=== PATIENT | female | born 1960 | race Two or more races ===

== ENCOUNTER 2023-08-24 13:43 | Emergency (ER) | payer OTHER ==
[2023-08-24 14:18] LABS: BASOPHILS % (AUTO) 0.8 %; EOSINOPHILS # (AUTO) 0.1 10^3/uL (0.0-0.7); EOSINOPHILS % (AUTO) 1.8 %; HCT - HEMATOCRIT 31.1 % (37.0-47.0); HGB - HEMOGLOBIN 8.8 g/dL (12.0-16.0); LYMPHOCYTES # (AUTO) 1.6 10^3/uL (1.5-3.5); LYMPHOCYTES % (AUTO) 30.7 %; MEAN CORPUSCULAR HEMOGLOBIN 23.3 pg (27.0-31.0); MEAN CORPUSCULAR HGB CONC 28.3 g/dL (32.0-36.0); MEAN CORPUSCULAR VOLUME 82.3 fL (81.0-99.0); MEAN PLATELET VOLUME 8.7 fL (7.9-10.8); MONOCYTES # (AUTO) 0.3 10^3/uL (0.0-1.0); MONOCYTES % (AUTO) 6.7 %; NEUTROPHILS % (AUTO) 59.6 %; PLT - PLATELET COUNT 327 10^3/uL (130-450); RED BLOOD COUNT 3.78 10^6/uL (4.20-5.40); RED CELL DISTRIBUTION WIDTH 18.1 % (12.0-15.0); WHITE BLOOD COUNT 5.1 x10^3/uL (4.8-10.8)
[2023-08-24 14:22] LABS: SLIDE REVIEW? Indicated
[2023-08-24 14:26] LABS: MAGNESIUM 1.8 mg/dL (1.7-2.3)
[2023-08-24 14:32] LABS: ALBUMIN 4.2 g/dL (3.2-5.5); ALBUMIN/GLOBULIN RATIO 1.9 (1.0-2.2); BILIRUBIN,TOTAL 0.2 mg/dL (0.2-1.0); CALCIUM 9.8 mg/dL (8.5-10.3); CREATININE 0.6 mg/dL (0.6-1.3); POTASSIUM 3.7 mmol/L (3.5-4.5); TOTAL PROTEIN 6.4 g/dL (6.4-8.9)
[2023-08-24 14:35] LABS: PLATELET ESTIMATE, MANUAL NORMAL (130-450,000) (NORMAL); PLATELET MORPHOLOGY NORMAL APPEARANCE (NORMAL); RBC MORPHOLOGY (MULTIPLE) 1+ HYPOCHROMASIA (NORMAL)
--- NOTE | 2023-08-24 14:58 | ED Physician Documentation ---
History of Present Illness - Stated complaint Stated Complaint: SOA,LOW BLOOD COUNT - Chief complaint Chief Complaint: General - Additonal information Additional information: 63-year-old female presents emergency department sent over from clinic for ongoing anemia. Patient's primary care provider Alicia Odonnell manage practitioner called and reports to the emergency department that hemoglobin for the patient was originally 7.9 has actually improved to 8.7 and is worried about a possible GI bleed. Patient is Orthodoxy and she tells me that she does not want a blood transfusion. Patient is here with her daughter she says that she has been feeling more fatigued and lethargic lately as well as experiencing urinary urgency. No fevers or chills no nausea vomiting. PD PAST MEDICAL HISTORY - Past Medical History Psych: Depression - Past Surgical History Past Surgical History: No - Present Medications Home Medications: Ambulatory Orders Medication Instructions Recorded Confirmed DULoxetine [Cymbalta] 20 mg PO DAILY 08/24/23 08/24/23 Sertraline [Zoloft] 50 mg PO DAILY 08/24/23 08/24/23 - Allergies Allergies/Adverse Reactions: Allergies Allergy/AdvReac Type Severity Reaction Status Date / Time Penicillins AdvReac Rash Verified 08/24/23 13:53 - Social History Does the pt smoke?: No Smoking Status: Never smoker Does the pt drink ETOH?: No Does the pt have substance abuse?: No - Immunizations Immunizations are current?: Yes PD ED PE NORMAL - Vitals Vital signs reviewed: Yes - General General: Alert and oriented X 3, No acute distress, Well developed/nourished - HEENT HEENT: Atraumatic, PERRL, EOMI, Moist mucous membranes - Cardiac Cardiac: RRR - Respiratory Respiratory: No respiratory distress, Clear bilaterally - Abdomen Abdomen: Normal bowel sounds, Soft, No organomegaly, Other (mild RLQ tenderness) - Derm Derm: Normal color, Warm and dry, No rash - Neuro Neuro: Alert and oriented X 3, 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, No motor deficit, No sensory deficit, Normal speech - Psych Psych: Normal mood Results - Vitals Vitals: Vital Signs - 24 hr 08/24/23 08/24/23 08/24/23 13:54 16:34 18:15 Temperature 36.9 C 36.9 C Heart Rate 82 69 72 Respiratory 17 16 16 Rate Blood Pressure 130/66 115/73 118/80 O2 Saturation 100 99 99 Oxygen O2 Source Room air - Labs Labs: Microbiology 08/24/23 15:57 Occult Blood - Final Stool Laboratory Tests 08/24/23 08/24/23 08/24/23 14:14 14:14 14:50 WBC 5.1 RBC 3.78 L Hgb 8.8 L Hct 31.1 L MCV 82.3 MCH 23.3 L MCHC 28.3 L RDW 18.1 H Plt Count 327 MPV 8.7 Neut # (Auto) 3.0 Lymph # (Auto) 1.6 Wetzel # (Auto) 0.3 Eos # (Auto) 0.1 Baso # (Auto) 0.0 Absolute Nucleated RBC 0.00 Nucleated RBC % 0.0 Manual Slide Review Indicated Platelet Estimate NORMAL (130-450,000) Platelet Morphology NORMAL APPEARANCE RBC Morph Micro Appear 1+ HYPOCHROMASIA Sodium 137 Potassium 3.7 Chloride 106 Carbon Dioxide 26 Anion Gap 5.0 L BUN 13 Creatinine 0.6 Estimated GFR (MDRD) 101 Glucose 97 Calcium 9.8 Magnesium 1.8 Iron 13 L TIBC 546 H % Saturation 2 L Transferrin 390 H Total Bilirubin 0.2 AST 20 ALT 25 Alkaline Phosphatase 81 Total Protein 6.4 Albumin 4.2 Globulin 2.2 Albumin/Globulin Ratio 1.9 Lipase 30 Urine Color YELLOW Urine Clarity CLEAR Urine pH 6.0 Ur Specific Dumas 1.020 Urine Protein NEGATIVE Urine Glucose (UA) NEGATIVE Urine Ketones NEGATIVE Urine Occult Blood NEGATIVE Urine Nitrite NEGATIVE Urine Bilirubin NEGATIVE Urine Urobilinogen 0.2 (NORMAL) Ur Leukocyte Esterase NEGATIVE Ur Microscopic Review NOT INDICATED Urine Culture Comments NOT INDICATED - Rads (name of study) CT abdomen pelvis with con Relevant Findings:: Final report received, EMP independent interpretation of test, Other (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 A rectal exam was complete with NONA Coppola at bedside chaperoning. There was a scant amount of blood without any evidence of stool for guaiac study. Labs are collected she does appear to have chronic iron deficiency anemia, hemoglobin 8.8, hematocrit 31.1 she says that she has been feeling lethargic but no dizziness she is Orthodoxy and says if she did require a blood transfusion she would decline. CMP also complete and no electrolyte abnormalities, urinalysis also complete no symptoms of UTI. I pursued a CT abdomen pelvis with contrast for further evaluation and it did reveal a possible small mesenteric tumor with reaction tethering loops of the small bowel without obstruction. This could be benign versus malignant etiologies. She is also found to have a cystic structure of the left pelvis measuring 6.3 cm but for myself she is endorsing and right lower quadrant pain. She is also found to have incidentally a compression fracture of T12 and L1 and says that the L1, compression fracture is subacute. Patient denies any back pain and so I believe that these are most likely old findings. Patient was updated of these CT findings and she was informed that she will need outpatient MRI for further evaluation of these cysts versus masses. She is also told to follow-up with her primary care provider for iron infusion with [facility] [place] clinic outpatient. At this point in time patient is eager to discharge home. I have discussed the above findings with her as well as her daughter all questions have been answered return precautions given. Departure - Departure Disposition: Home, Self Care Clinical Impression: Pelvic mass, External hemorrhoid Anemia Qualifiers: Anemia type: iron deficiency Iron deficiency anemia type: other iron deficiency Qualified Code(s): D50.8 - Other iron deficiency anemias Instructions: ED Hemorrhoids Comments: Thank you for trusting us with your care. We have completed a CT scan and you will see the findings below under the section titled Impression: In short we have found that you do have a 6.3 cm mass in your left pelvic region and a possible mesenteric tumor about 1.3 cm. This will need to be reevaluated and further investigated with an MRI pelvis with and without contrast this is something I would like your primary care provider to order outpatient. Would also recommend following up with your primary care provider for GI referral or referral here to our clinic for an endoscopy colonoscopy for further evaluation of your GI bleed that you are concerned of. Please follow-up with your primary care provider also about an iron transfusion that can be arranged at the [facility]. Please do not hesitate to come back to the emergency department if you are starting to experience any nausea vomiting severe worsening abdominal pain, bright red blood per rectum, dark black bowel movements. FINDINGS: Image quality: Diagnostic. Lower chest: Mild hiatal hernia. Normal heart size. Lung bases are clear as visualized. Liver: No solid mass. Gallbladder and biliary tree: Contracted, within normal limits. Spleen: No splenomegaly. Pancreas: No pancreatic ductal dilation. Adrenals: No adrenal nodule. Kidneys and ureters: No hydronephrosis. No renal cystic lesion which requires follow up. No solid mass. Stomach, bowel and peritoneum: No bowel distension. No pathologic free fluid. There appears to be a possible subtle soft tissue mass in the mesenteric fat subjacent to small bowel loops which measures 1.8 x 1.2 cm, and appears to potentially tethered loops with possible desmoplastic reaction. This is noted when reviewing sequential images 100 through 106 of series 2. The masslike area is noted on image 103. There are no dilated loops of small bowel. The colon is unremarkable. Lymph nodes: No central or retroperitoneal adenopathy. Vessels: No infrarenal aortic aneurysm. PELVIS Reproductive organs: The uterus is present. There is a cystic structure in the left upper pelvis which measures 6.3 x 4.4 cm. It seems to be at a distance from where the ovary with the located, and may not be ovarian in nature.. Bladder: No abnormal wall thickening, accounting for underdistention. Pelvic lymph nodes: No pelvic adenopathy by size criteria. Bones: There is a moderate to severe chronic compression of T12. A moderate to severe L1 compression may potentially have a subacute component. No other fractures or dislocations noted. Other: Small fat-containing periumbilical hernia. No inguinal hernias noted. IMPRESSION: 1. 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 Differential diagnosis includes benign and malignant etiologies. 2. A cystic structure in the left pelvis measuring 6.3 cm in maximum diameter is most likely not a variant in etiology.. 3. Compression fractures of T12 and L1. The L1 compression may have a subacute component.. Recommend nonemergent MRI pelvis utilizing multiphase imaging with and without contrast To further evaluate this possible soft tissue mass. The cystic structure in the left pelvis could be evaluated at the same time. The cystic structure will likely require yearly follow-up to document stability. Forms: PCP List Discharge Date/Time: 08/24/23 18:16
[2023-08-24 15:06] LABS: BILIRUBIN,URINE NEGATIVE (NEGATIVE); GLUCOSE, URINE (UA) NEGATIVE (NEGATIVE); KETONES,URINE (UA) NEGATIVE (NEGATIVE); LEUKOCYTE ESTERASE, URINE NEGATIVE (NEGATIVE); NITRITE,URINE NEGATIVE (NEGATIVE); OCCULT BLOOD,URINE NEGATIVE (NEGATIVE); PROTEIN,URINE NEGATIVE (NEGATIVE); UROBILINOGEN,URINE 0.2 (NORMAL) E.U./dL (NORMAL)
[2023-08-24 15:13] LABS: CLARITY,URINE CLEAR (CLEAR)
[2023-08-24] MEDS: MAG HYDROX/AL HYDROX/SIMETH 30 ML UDC PO STA (16:09)
[2023-08-24] MEDS ORDERED: iohexoL-300 100 ML VIAL ONE (16:30)
[2023-08-24 16:42] VITALS: O2SAT 99
[2023-08-24] MEDS: iohexoL-300 100 ML VIAL IVP ONE (16:59)
--- NOTE | 2023-08-24 17:25 | CT Report ---
PROCEDURE: Abdomen/Pelvis W INDICATIONS: RLQ pain wraps through back CONTRAST: 100ml omni 30 TECHNIQUE: After the administration of intravenous contrast, a CT scan of the abdomen and pelvis was performed. Images were recorded and evaluated at appropriate window settings. Reformats: coronal and sagittal. F or radiation dose reduction, the following was used: automated exposure control, adjustment of mA and /or kV according to patient size. COMPARISON: None. FINDINGS: Image quality: Diagnostic. Lower chest: Mild hiatal hernia. Normal heart size. Lung bases are clear as visualized. Liver: No solid mass. Gallbladder and biliary tree: Contracted, within normal limits. Spleen: No splenomegaly. Pancreas: No pancreatic ductal dilation. Adrenals: No adrenal nodule. Kidneys and ureters: No hydronephrosis. No renal cystic lesion which requires follow up. No solid mas s. Stomach, bowel and peritoneum: No bowel distension. No pathologic free fluid. There appears to be a p ossible subtle soft tissue mass in the mesenteric fat subjacent to small bowel loops which measures 1 .8 x 1.2 cm, and appears to potentially tethered loops with possible desmoplastic reaction. This is n oted when reviewing sequential images 100 through 106 of series 2. The masslike area is noted on imag e 103. There are no dilated loops of small bowel. The colon is unremarkable. Lymph nodes: No central or retroperitoneal adenopathy. Vessels: No infrarenal aortic aneurysm. PELVIS Reproductive organs: The uterus is present. There is a cystic structure in the left upper pelvis whic h measures 6.3 x 4.4 cm. It seems to be at a distance from where the ovary with the located, and may not be ovarian in nature.. Bladder: No abnormal wall thickening, accounting for underdistention. Pelvic lymph nodes: No pelvic adenopathy by size criteria. Bones: There is a moderate to severe chronic compression of T12. A moderate to severe L1 compression may potentially have a subacute component. No other fractures or dislocations noted. Other: Small fat-containing periumbilical hernia. No inguinal hernias noted. IMPRESSION: 1. 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 Differential diagnosis includes benign and malignant etiologies. 2. A cystic structure in the left pelvis measuring 6.3 cm in maximum diameter is most likely not a va riant in etiology.. 3. Compression fractures of T12 and L1. The L1 compression may have a subacute component.. Recommend nonemergent MRI pelvis utilizing multiphase imaging with and without contrast To further evaluate this possible soft tissue mass. The cystic structure in the left pelvis could be evaluated at the same time. The cystic structure will likely require yearly follow-up to document sta bility. Reviewed by: Donn Aparicio MD on 08/24/2023 5:24 PM PDT Approved by: Donn Aparicio MD on 08/24/2023 5:24 PM PDT Station ID: [id number]
[2023-08-24 18:23] VITALS: BP 118/80
== END 2023-08-24 18:16 | disposition home or self-care (01) ==
LOC: ED 13:43
DX: D50.8 Other iron deficiency anemias (principal); R93.5 Abnormal findings on diagnostic imaging of other abdominal regions, including retroperitoneum; R10.31 Right lower quadrant pain; M48.56XD Collapsed vertebra, not elsewhere classified, lumbar region, subsequent encounter for fracture with routine healing; M48.54XD Collapsed vertebra, not elsewhere classified, thoracic region, subsequent encounter for fracture with routine healing; K64.4 Residual hemorrhoidal skin tags; R39.15 Urgency of urination
CPT/HCPCS: 36415; 74177; 80053; 81003; 82272; 83540; 83690; 83735; 84466; 85025; 99284; A9270; Q9967; 81001; 87086